=== PATIENT | female | born 1980 ===

== ENCOUNTER 2020-06-05 09:01 | Outpatient (REF) | payer OTHER, SELFPAY ==
[2020-06-05 12:01] LABS: Hematocrit 37.5 % (37-47); Hemoglobin 11.9 g/dl (12.0-16.0); Mean Corpuscular HGB Conc 31.7 g/dl (31.0-35.0); Mean Corpuscular Hemoglobin 29.2 pg (27.0-33.0); Mean Corpuscular Volume 92.1 fL (80-98); Mean Platelet Volume 10.9 fL (9.4-12.3); Platelet Count 280 X10*3/uL (160-400); Red Blood Count 4.07 X10*6/uL (4.20-5.50); Red Cell Distribution Width 13.5 % (11.0-16.0); White Blood Count 6.9 X10*3/uL (4.8-10.8)
[2020-06-05 12:50] LABS: HCG Quantitative < 2 mIU/mL; Thyroid Stimulating Hormone 1.86 uIU/mL (0.32-4.0)
[2020-06-05 15:59] LABS: CT PCR NOT DETECTED (Not Detect.); NG PCR NOT DETECTED (Not Detect.)
[2020-06-06 09:29] LABS: BV Int Neg Control Negative (Negative); BV Int Pos Control Positive (Positive)
[2020-06-07 18:36] LABS: HPV mRNA E6/E7 rflx Not Detected (Not Detected)
== END 2020-06-05 09:02 | disposition home or self-care (01) ==
LOC: HO.LAB 09:01
PROVIDERS: PCP Nurse Practitioner Family; Visit Provider Obstetrics & Gynecology
DX: Z01.419 Encounter for gynecological examination (general) (routine) without abnormal findings (principal); N92.0 Excessive and frequent menstruation with regular cycle; B96.89 Other specified bacterial agents as the cause of diseases classified elsewhere; N76.0 Acute vaginitis
CPT/HCPCS: 36415; 84443; 84702; 85027; 87480; 87491; 87510; 87591; 87624; 87625; 87660; 88142

== ENCOUNTER 2020-06-13 14:08 | Outpatient (REF) | payer OTHER, SELFPAY ==
--- NOTE | 2020-06-13 14:15 | US_ITS ---
EXAMINATION: US PELVIS ULTRASOUND CLINICAL INFORMATION: Excessive and frequent menstruation with regular cycle. LMP 05/10/2020. Age 40. N92.0 COMPARISON: Pelvic ultrasound 07/14/2017 TECHNIQUE: Ultrasound of the pelvis is performed using both transabdominal and transvaginal transducers along with Doppler. Transvaginal imaging is performed due to inadequate visualization transabdominally. FINDINGS: Uterus: The uterus is anteverted and measures 9.9 x 5.5 x 6.2 cm. The double wall endometrial thickness is normal at 9 mm. There are numerous scattered specular echoes within the cervical endometrium with some scattered subtle ringdown artifact suggesting microcalcifications. Finding is new from prior ultrasound 2017. There is no focal strong posterior shadowing to suggest macrocalcification nor dirty shadowing of gas. There is no associated color flow to suggest hyperechoic polyps. The uterus is smooth in contour and has normal myometrial echogenicity. No visible fibroid. Adnexa: Both ovaries are visualized. There is normal color flow to the adnexa. There is no ovarian torsion. There is no pelvic ascites or fluid collection. Right ovary measures 4.0 x 2.1 x 2.9 cm. There is a dominant follicle within the right ovary measuring 1.9 x 1.5 cm. Left ovary measures 3.8 x 1.8 x 2.0 cm. No left adnexal mass. US/US pelvic complete IMPRESSION: 1. Uterus: Normal double wall endometrial thickness, 9 mm. Numerous echogenic foci cervical endometrium without associated color flow likely benign microcalcifications. 2. Adnexa: No adnexal mass or pelvic ascites.
== END 2020-06-13 14:09 | disposition home or self-care (01) ==
LOC: HO.US 14:08
PROVIDERS: PCP Nurse Practitioner Family; Visit Provider Obstetrics & Gynecology
DX: N92.0 Excessive and frequent menstruation with regular cycle (principal)
CPT/HCPCS: 76830; 76856

== ENCOUNTER 2020-07-19 10:16 | Outpatient (REF) | payer OTHER, SELFPAY | END 2020-07-19 10:17 | disposition home or self-care (01) | LOC: HO.LAB 10:16 | PROVIDERS: PCP Nurse Practitioner Family; Visit Provider Obstetrics & Gynecology | DX: N92.0 Excessive and frequent menstruation with regular cycle (principal) | CPT/HCPCS: 58100; 88305 ==

== ENCOUNTER → 2020-08-07 14:23 | Outpatient (BNVA) | payer OTHER, SELFPAY | PROVIDERS: PCP Nurse Practitioner Family; Visit Provider Obstetrics & Gynecology | DX: Z76.89 Persons encountering health services in other specified circumstances (principal) ==

== ENCOUNTER 2020-09-26 08:50 | Outpatient (REF) | payer OTHER, SELFPAY ==
--- NOTE | ~2020-09-26 | MM_ITS ---
EXAMINATION: MM SCREENING DIGITAL BREAST TOMOSYNTHESIS, BILATERAL CLINICAL INFORMATION: Screening. Asymptomatic. The lifetime risk of breast cancer based on the Tyrer-Cuzick Model is 9%. COMPARISON: Mammography: 06/18/2019, 04/24/2018 (baseline), ultrasound left breast 04/24/2018 ultrasound bilateral breasts 06/18/2019. TECHNIQUE: Digital breast tomosynthesis is performed in both the craniocaudal and mediolateral oblique views along with computer-aided detection (CAD). Synthesized 2D images are generated from the tomosynthesis. Additional bilateral exaggerated CC views are provided. FINDINGS: The breasts are heterogeneously dense, which may obscure small masses (ACR BI-RADS breast composition Category c). Breast tissue composition borders on average fibroglandular. There is no significant mass or architectural abnormality or abnormal calcifications. There are grouped coarse and dermal calcifications overlying the mid 5:00 right breast. The axilla and skin contours are unremarkable. MM/MM tomosynthesis screening BI IMPRESSION: No mammographic evidence of malignancy. ASSESSMENT: BI-RADS 2: Benign RECOMMENDATION: Routine annual mammography screening. This patient's information was entered into a reminder system with a target due date for their next mammogram.
== END 2020-09-26 08:51 | disposition home or self-care (01) ==
LOC: HO.MAMMO 08:50
PROVIDERS: Visit Provider Obstetrics & Gynecology
DX: Z12.31 Encounter for screening mammogram for malignant neoplasm of breast (principal)
CPT/HCPCS: 77063; 77067

== ENCOUNTER 2021-07-23 09:03 | Outpatient (REF) | payer OTHER, SELFPAY ==
[2021-07-23 14:17] LABS: CT PCR NOT DETECTED (Not Detect.); NG PCR NOT DETECTED (Not Detect.)
[2021-07-24 09:30] LABS: BV Int Neg Control Negative (Negative); BV Int Pos Control Positive (Positive)
[2021-07-26 13:56] LABS: HPV mRNA E6/E7 rflx Not Detected (Not Detected)
== END 2021-07-23 09:04 | disposition home or self-care (01) ==
LOC: HO.LAB 09:03
PROVIDERS: PCP Nurse Practitioner Family; Visit Provider Obstetrics & Gynecology
DX: Z01.411 Encounter for gynecological examination (general) (routine) with abnormal findings (principal); Z11.51 Encounter for screening for human papillomavirus (HPV); B37.3 Candidiasis of vulva and vagina; B96.89 Other specified bacterial agents as the cause of diseases classified elsewhere; N76.0 Acute vaginitis
CPT/HCPCS: 87480; 87491; 87510; 87591; 87624; 87660; 88142

== ENCOUNTER 2021-12-28 09:17 | Outpatient (REF) | payer OTHER, SELFPAY ==
--- NOTE | ~2021-12-28 | MM_ITS ---
EXAMINATION: MM SCREENING DIGITAL BREAST TOMOSYNTHESIS, BILATERAL CLINICAL INFORMATION: Screening. Asymptomatic. The lifetime risk of breast cancer based on the Tyrer-Cuzick Model is 8.1%. COMPARISON: Mammography: September 26, 2020 and studies dating back to April 16, 2018 TECHNIQUE: Digital breast tomosynthesis is performed in both the craniocaudal and mediolateral oblique views along with computer-aided detection (CAD). Synthesized 2D images are generated from the tomosynthesis. Additional left breast exaggerated craniocaudal view performed. FINDINGS: The breasts are heterogeneously dense, which may obscure small masses (ACR BI-RADS breast composition Category c). There are no significant masses, abnormal calcifications, or other abnormalities. MM/MM tomosynthesis screening BI IMPRESSION: There are no significant changes from prior study. ASSESSMENT: BI-RADS 1: Negative RECOMMENDATION: Routine annual mammography screening. This patient's information was entered into a reminder system with a target due date for their next mammogram.
== END 2021-12-28 09:18 | disposition home or self-care (01) ==
LOC: HO.MAMMO 09:17
PROVIDERS: Visit Provider Obstetrics & Gynecology
DX: Z12.31 Encounter for screening mammogram for malignant neoplasm of breast (principal)
CPT/HCPCS: 77063; 77067

== ENCOUNTER 2023-01-03 09:25 | Outpatient (REF) | payer MEDICAID, SELFPAY ==
--- NOTE | ~2023-01-03 | MM_ITS ---
EXAMINATION: MM SCREENING DIGITAL BREAST TOMOSYNTHESIS, BILATERAL CLINICAL INFORMATION: Screening. Asymptomatic. The lifetime risk of breast cancer based on the Tyrer-Cuzick Model is 8%. COMPARISON: Mammography: 12/28/2021, 10/14/2020, 06/18/2019 TECHNIQUE: Digital breast tomosynthesis is performed in both the craniocaudal and mediolateral oblique views along with computer-aided detection (CAD). Synthesized 2D images are generated from the tomosynthesis. FINDINGS: The breasts are heterogeneously dense, which may obscure small masses (ACR BI-RADS breast composition Category c). There are no significant masses, abnormal calcifications, or other abnormalities. Parenchymal pattern is similar to prior studies. There is no developing density or architectural abnormality. There are incidental benign grouped dermal calcifications again seen 5:00 right breast. The axilla and skin contours are unremarkable. No significant changes. MM/MM tomosynthesis screening BI IMPRESSION: No mammographic evidence of malignancy. ASSESSMENT: BI-RADS 2: Benign RECOMMENDATION: Routine annual mammography screening. This patient's information was entered into a reminder system with a target due date for their next mammogram.
== END 2023-01-03 09:26 | disposition home or self-care (01) ==
LOC: HO.MAMMO 09:25
PROVIDERS: PCP Physician Assistant; Visit Provider Physician Assistant
DX: Z12.31 Encounter for screening mammogram for malignant neoplasm of breast (principal)
CPT/HCPCS: 77063; 77067

== ENCOUNTER 2023-01-22 08:47 | Outpatient (REF) | payer MEDICAID, SELFPAY ==
[2023-01-28 10:23] LABS: HPV mRNA E6/E7 rflx Not Detected (Not Detected)
== END 2023-01-22 08:48 | disposition home or self-care (01) ==
LOC: HO.LNP 08:47
PROVIDERS: PCP Physician Assistant; Visit Provider Obstetrics & Gynecology
DX: Z01.419 Encounter for gynecological examination (general) (routine) without abnormal findings (principal); N87.0 Mild cervical dysplasia; N93.9 Abnormal uterine and vaginal bleeding, unspecified
CPT/HCPCS: 87624; 88142

== ENCOUNTER 2023-01-22 09:20 | Outpatient (REF) | payer MEDICAID, SELFPAY ==
[2023-01-22 09:49] LABS: Hemoglobin 13.1 g/dl (12.0-16.0); Mean Corpuscular Hemoglobin 28.2 pg (27.0-33.0); Mean Corpuscular Volume 88.4 fL (80.0-98.0); Mean Platelet Volume 10.7 fL (9.4-12.3); Platelet Count 290 X10*3/uL (160-400); Red Blood Count 4.64 X10*6/uL (4.20-5.50); Red Cell Distribution Width 14.8 % (11.0-16.0); White Blood Count 5.8 X10*3/uL (4.8-10.8)
[2023-01-22 10:30] LABS: HCG Quantitative < 2 mIU/mL
[2023-01-22 10:41] LABS: TSH reflex Free T4 1.65 uIU/mL (0.32-4.0)
[2023-01-24 06:13] LABS: Prolactin 10.8 ng/mL
== END 2023-01-22 09:21 | disposition home or self-care (01) ==
LOC: HO.LAB 09:20
PROVIDERS: PCP Physician Assistant; Visit Provider Obstetrics & Gynecology
DX: N93.9 Abnormal uterine and vaginal bleeding, unspecified (principal)
CPT/HCPCS: 36415; 84146; 84443; 84702; 85027

== ENCOUNTER 2023-01-31 11:06 | Outpatient (REF) | payer MEDICAID, SELFPAY ==
--- NOTE | ~2023-01-31 | US_ITS ---
EXAMINATION: US PELVIS CLINICAL INFORMATION: Abnormal uterine and vaginal bleeding. COMPARISON: 06/13/2020 TECHNIQUE: Ultrasound of the pelvis is performed using both transabdominal and transvaginal transducers along with Doppler. Transvaginal imaging is performed due to inadequate visualization transabdominally. FINDINGS: UTERUS: The uterus is anteverted and measures 10.6 x 5.2 x 6.3 cm. No significant cervical abnormality identified. Nabothian cysts present. The double wall endometrial thickness is 10 mm. There is a small amount of free fluid present within the endometrial canal. The uterus is smooth in contour and has normal myometrial echogenicity. No visible fibroid. There is a 5 mm cyst within the left uterine body. ADNEXA: Both ovaries are visualized. There is normal color flow to the adnexa. There is no ovarian torsion. There is a small amount of fluid within the cul-de-sac. Right ovary measures: 2.7 x 1.8 x 2.1 cm. Volume of 5.3 mL. No right ovarian abnormality appreciated. Left ovary measures: 3.6 x 2.2 x 1.6 cm. Volume of 6.6 mL. There is a hypoechoic circumscribed 1.4 x 1.2 x 1.4 cm left ovarian mass with some increased through sound transmission and ring vascularity consistent with corpus luteum. US/US pelvic and transvaginal IMPRESSION: 1. Small amount of fluid seen within the endometrial canal. 2. No significant pelvic abnormality appreciated.
== END 2023-01-31 11:07 | disposition home or self-care (01) ==
LOC: HO.US 11:06
PROVIDERS: PCP Physician Assistant; Visit Provider Obstetrics & Gynecology
DX: N93.9 Abnormal uterine and vaginal bleeding, unspecified (principal)
CPT/HCPCS: 76830; 76856

== ENCOUNTER 2023-06-30 09:06 | Outpatient (AMB) | payer MEDICAID, SELFPAY ==
[2023-06-30 09:22] VITALS: BP 112/72; BMI 22.3
--- NOTE | 2023-06-30 09:22 | MHC.OFFVIS ---
Intake Vital Signs 06/30/23 09:22 Height 5 ft 8 in Weight 147 lb BMI 22.3 BP 112/72 Intake Visit Reasons: EMB/US results/30 min/DO NOT RS National Investigative Producer Required: No Information Interpreted: non-clinical & clinical Hydroelectric Production Manager: Hydroelectric Production Manager Present (Rachelle) Allergies acetaminophen [From PERCOCET] Allergy (Unknown, Verified 06/30/23 09:23) DIFFICULTY BREATHING morphine [Morphine] Allergy (Unknown, Verified 06/30/23 09:23) RASH, itching oxycodone [From PERCOCET] Allergy (Unknown, Verified 06/30/23 09:23) DIFFICULTY BREATHING Is last menstrual period known: Yes Last menstrual period: 06/11/23 Post menopausal: No Patient : No HPI HPI Comments History of Present Illness Details Presenting for EMB. Complaining of left breast tender lump [facility] Medical History Dysplasia of cervix, low grade (ZI 1) ZI II (cervical intraepithelial neoplasia II) Genital HSV Cholecystitis Anxiety Thyroid nodule Surgical History Hx of thyroidectomy History of bilateral tubal ligation History of cholecystectomy Family History Paternal Aunt Colon cancer Social History Alcohol intake: never Sexual orientation: Straight/Heterosexual Gender identity: Female Female Reproductive History Menstrual Age of Menarche: 10 Date of last menstrual period: 06/11/23 control method: permanent sterilization Date of last pap smear: 01/23/23 (negative) Physical Exam Vital Signs: Last Vital Signs BP 112/72 06/30/23 09:22 BMI result Body Mass Index 22.3 Chest Chest palpation & inspection: normal inspection of the chest Breast/axilla inspection: normal inspection of the breasts Breast/axilla palpation: normal palpation of the breasts (Right breast wnl, left breast tender lump at 06:00 o'clock 1 cm from nipple) Office Procedures Endometrial Biopsy Details: The patient was counseled regarding the indication and benefits of endometrial sampling to rule out endometrial pathology including not limited to endometrial hyperplasia or endometrial cancer and others; The alternatives (Either do nothing vs. hysteroscopy D&C) & the risks were discussed with the patient including but not limited: pain, uterine perforation, bleeding, infection, possible injury to bladder, bowel, ureter, possible need for blood transfusion with all its possible risks. The patient verbalized understanding all questions answered and signed consent. Urine test done in the office was negative The patient was placed into the dorsal lithotomy position; a speculum was inserted in the vagina. Using aseptic technique for the procedure, the cervix was cleansed with Betadine. The anterior lip of the cervix was grasped with a single tooth tenaculum. The uterus was sounded to 7 cm with a 4 mm Pipelle was used. Tissues samples were obtained and placed in formalin, in a patient labeled container and sent to the pathology department. At the end of the procedure, there was minimal bleeding noted The patient tolerated the procedure well and was discharged in good condition with the following instructions: Nothing in the vagina until the bleeding stops. No sex until the bleeding stops, to call if any of the following occurs: fever (>100.4), flu-like symptoms, abdominal pain, heavy bleeding, four smelling vaginal discharge. The patient was instructed to schedule a Follow up appointment in 2 weeks to discuss pathology results of the biopsy and treatment options. This note was generated with a voice recognition program. Some errors may have been overlooked during the review of this note. Sometimes these errors may affect the content or meaning of a given sentence. [id number] Biopsy Results AMB Test Urine AMB Test Urine Negative Last Edit by XU Vogel on 06/30/23 09:25 Assessment & Plan Assessment & Plan (1) Abnormal uterine bleeding: Code(s): N93.9 - Abnormal uterine and vaginal bleeding, unspecified Plan: EMB done, see procedure note (2) Breast lump: Comment: left breast tender lump at 06:00 o'clock 1 cm from nipple Code(s): N63.0 - Unspecified lump in unspecified breast Plan: Discussed with the patient the finding on Breast exam (breast lump) .The differential diagnosis includes but not limited to lump/cyst/pre cancer/cancer or dense breast tissue. The work up includes breast US and diagnostic mammogram and referred the patient for surgical breast consult. Orders: Orders MM tomosynthesis diagnostic BI Today N63.0 - Unspecified lump in unspecified breast AMB Endometrial Biopsy Today N93.9 - Abnormal uterine and vaginal bleeding, unspecified AMB HCG Urine Test Today Z32.02 - Encounter for test, result negative US breast LT complete Today N63.0 - Unspecified lump in unspecified breast Referrals General Surgery Referral N63.0 - Unspecified lump in unspecified breast Coding Level of Care Code Est Pt Level 3 (92721) Procedure Only Diagnoses Abnormal uterine bleeding N93.9 Breast lump N63.0 CPT Codes Endometrial Biopsy - CPT: 71930-[id number] Biopsy ([id number])
== END 2023-06-30 09:40 | disposition home or self-care (01) ==
PROVIDERS: PCP Physician Assistant; Visit Provider Obstetrics & Gynecology
DX: N63.25 Unspecified lump in the left breast, overlapping quadrants (principal); N93.9 Abnormal uterine and vaginal bleeding, unspecified; Z32.02 Encounter for pregnancy test, result negative
CPT/HCPCS: 58100; 99213

== ENCOUNTER 2023-06-30 09:06 | Outpatient (REF) | payer MEDICAID, SELFPAY | END 2023-06-30 09:07 | disposition home or self-care (01) | LOC: HO.LNP 09:06 | PROVIDERS: PCP Physician Assistant; Visit Provider Obstetrics & Gynecology | DX: N93.9 Abnormal uterine and vaginal bleeding, unspecified (principal); N63.0 Unspecified lump in unspecified breast | CPT/HCPCS: 58100; 81025; 88305; 99212 ==

== ENCOUNTER 2023-07-07 08:25 | Outpatient (REF) | payer MEDICAID, SELFPAY ==
--- NOTE | ~2023-07-07 | US_ITS ---
EXAMINATION: MM DIAGNOSTIC DIGITAL BREAST TOMOSYNTHESIS, LEFT US BREAST LIMITED, LEFT MAMMOGRAPHY: CLINICAL INFORMATION: 43-year-old female, feels lump at 6:00 periareolar location. COMPARISON: Mammography: 01/03/2023, 12/28/2021, 09/26/2020 TECHNIQUE: Digital breast left tomosynthesis is performed in both the craniocaudal and mediolateral oblique views along with computer-aided detection (CAD). Synthesized 2D images are generated from the tomosynthesis. A full-field left mediolateral view was also obtained. FINDINGS: The breasts are heterogeneously dense, which may obscure small masses (ACR BI-RADS breast composition Category c). Area of palpable concern is been marked with a BB by the technologist at the 6:00 location periareolar. No mammographic mass, suspicious calcifications, or developing architectural distortion is seen to correlate with the BB marker. No suspicious findings in the left breast. ULTRASOUND: CLINICAL INFORMATION: Palpable abnormality 6:00 periareolar. COMPARISON: None TECHNIQUE: Targeted sonographic evaluation was performed using a high frequency linear transducer. Attention was given to the 6:00 axis periareolar in the region of palpable concern. Selected archived documentation. FINDINGS: LEFT BREAST: In the 6:00 axis of the left breast, 1 cm from the nipple, there is a small cyst measuring 4 x 2 x 2 cm, accounting for the palpable focus of concern. This is a benign finding. In addition there is a second simple cyst at the 7:00 location measuring approximately 4 mm. No masses or suspicious abnormalities. US/US breast LT limited mamm only IMPRESSION: Palpable finding in the left breast 6:00 axis is consistent with a small simple cyst. This is benign. No further follow-up recommended. Recommend the patient resume routine annual screening in December 2023. OVERALL ASSESSMENT: Mammography: BI-RADS 2 - Benign Findings Ultrasound: BI-RADS 2 - Benign Findings RECOMMENDATION: 1 year F/U Results were provided to the patient at time of visit by the technologist. This patient's information was entered into a reminder system with a target due date for their next mammogram.
== END 2023-07-07 08:26 | disposition home or self-care (01) ==
LOC: HO.MAMMO 08:25
PROVIDERS: PCP Physician Assistant; Visit Provider Obstetrics & Gynecology
DX: N63.25 Unspecified lump in the left breast, overlapping quadrants (principal); N93.9 Abnormal uterine and vaginal bleeding, unspecified; N71.9 Inflammatory disease of uterus, unspecified
CPT/HCPCS: 36415; 76642; 77061; 77065; 81025; 85027; 99212

== ENCOUNTER → 2023-07-07 09:00 | Outpatient (BNV) | payer MEDICAID, SELFPAY | PROVIDERS: PCP Physician Assistant; Visit Provider Radiology Diagnostic Radiology | DX: N63.20 Unspecified lump in the left breast, unspecified quadrant (principal) | CPT/HCPCS: 76642; 77061; 77065 ==

== ENCOUNTER 2023-07-07 14:55 | Outpatient (AMB) | payer MEDICAID, SELFPAY ==
--- NOTE | 2023-07-07 15:29 | A.OFFVIS_ITS ---
Intake Vital Signs 07/07/23 15:36 Height 5 ft 8 in Weight 145 lb 8.081 oz BMI 22.1 BP 126/80 Temp 97.1 F Intake Visit Reasons: Bleeding after emb Allergies acetaminophen [From PERCOCET] Allergy (Unknown, Verified 06/30/23 09:23) DIFFICULTY BREATHING morphine [Morphine] Allergy (Unknown, Verified 06/30/23 09:23) RASH, itching oxycodone [From PERCOCET] Allergy (Unknown, Verified 06/30/23 09:23) DIFFICULTY BREATHING HPI HPI Comments History of Present Illness Details Presenting 1 week post EMB complaining of vaginal bleeding started few days ago that is heavy associated with pelvic cramping no fever or chills, no nausea or vomiting. EMB was negative for endometrial hyperplasia or malignancy, ultrasound was unremarkable . [facility] [place] Medical History Dysplasia of cervix, low grade (ZI 1) ZI II (cervical intraepithelial neoplasia II) Genital HSV Cholecystitis Anxiety Thyroid nodule Surgical History Hx of thyroidectomy History of bilateral tubal ligation History of cholecystectomy Family History Paternal Aunt Colon cancer Social History Alcohol intake: never Sexual orientation: Straight/Heterosexual Gender identity: Female Female Reproductive History Menstrual Age of Menarche: 10 Physical Exam Vital Signs: Last Vital Signs BP 126/80 07/07/23 15:36 GI Palpation (GI): Soft to palpation and nontender General: Yes Bimanual renal exam normal bilaterally External Female Exam: normal external appearance Speculum Exam - Vagina: other (Blood per vagina, no evidence of active bleeding) Speculum Exam - Cervix: Cervical tenderness present Bimanual exam- vagina & uterus: Cervical tenderness present, cervical motion tenderness and Uterine tenderness Bimanual Exam- Adnexa, other: tender Results AMB Test Urine AMB Test Urine Negative Last Edit by Rachelle Lin CMA on 15:42 Results Reviewed Results Reviewed: Laboratory Last Values [facility] Clinic Negative 07/07/23 15:41 Assessment & Plan Assessment & Plan (1) Abnormal uterine bleeding: Code(s): N93.9 - Abnormal uterine and vaginal bleeding, unspecified Plan: UPT done in the office was negative. Will order CBC , start Provera 10 mg p.o. q.d. for 30 days. Instructions given the patient to call or go to emergency room in case of persistence of heavy vaginal bleeding otherwise follow-up in the office in 2 weeks (2) Endometritis: Code(s): N71.9 - Inflammatory disease of uterus, unspecified Plan: Will treat with Levaquin 500 mg p.o. q.d. with Flagyl 500 mg p.o. b.i.d. for 14 days. Instructions given to patient to call in case of fever above 100.4, nausea or vomiting, abdominal/pelvic pain otherwise schedule a 2 week follow-up Orders: Orders AMB HCG Urine Test Today Z32.02 - Encounter for test, result negative Medications: New levofloxacin 500 mg PO DAILY 14 days 28 tabs 0RF metronidazole 500 mg PO BID 14 days 28 tabs 0RF medroxyprogesterone (Provera) start Provera 1 tablet daily from day 15-24 cyclically every months, day 1 being 1st day of menses 10 mg PO DAILY 30 days 30 tabs 0RF Coding Level of Care Code Est Pt Level 3 (77182) Diagnoses Abnormal uterine bleeding N93.9 Endometritis N71.9
[2023-07-07 15:36] VITALS: BP 126/80; TEMP 36.2; BMI 22.1
== END 2023-07-07 16:11 | disposition home or self-care (01) ==
LOC: HO.HWS 14:55
PROVIDERS: PCP Physician Assistant; Visit Provider Obstetrics & Gynecology
DX: N93.9 Abnormal uterine and vaginal bleeding, unspecified (principal); N71.9 Inflammatory disease of uterus, unspecified; Z32.02 Encounter for pregnancy test, result negative
CPT/HCPCS: 99213

== ENCOUNTER 2023-07-07 16:05 | Outpatient (REF) | payer MEDICAID, SELFPAY ==
[2023-07-07 17:39] LABS: Hematocrit 38.7 % (37.0-47.0); Hemoglobin 12.3 g/dl (12.0-16.0); Mean Corpuscular HGB Conc 31.8 g/dl (31.0-35.0); Mean Corpuscular Hemoglobin 28.6 pg (27.0-33.0); Mean Platelet Volume 11.2 fL (9.4-12.3); Platelet Count 285 X10*3/uL (160-400); Red Cell Distribution Width 14.2 % (11.0-16.0)
== END 2023-07-07 16:06 | disposition home or self-care (01) ==
LOC: HO.LAB 16:05
PROVIDERS: Visit Provider Obstetrics & Gynecology
DX: N93.9 Abnormal uterine and vaginal bleeding, unspecified (principal)
CPT/HCPCS: 36415; 85027

== ENCOUNTER 2023-07-17 12:43 | Outpatient (AMB) | payer MEDICAID, SELFPAY ==
[2023-07-17 12:55] VITALS: BP 116/70; BMI 22.0
--- NOTE | 2023-07-17 12:55 | MHC.OFFVIS ---
Intake Vital Signs 07/17/23 12:55 Height 5 ft 8 in Weight 145 lb BMI 22.0 BP 116/70 Intake Visit Reasons: Follow labs Perennial House Manager Required: No Accompanied by: Daughter Allergies acetaminophen [From PERCOCET] Allergy (Unknown, Verified 07/17/23 12:55) DIFFICULTY BREATHING morphine [Morphine] Allergy (Unknown, Verified 07/17/23 12:55) RASH, itching oxycodone [From PERCOCET] Allergy (Unknown, Verified 07/17/23 12:55) DIFFICULTY BREATHING Is last menstrual period known: Yes Last menstrual period: 07/07/23 Post menopausal: No HPI HPI Comments History of Present Illness Details Presenting for follow-up for endometritis. The patient did not take antibiotic was feeding much better normal pelvic pain or any other concerns. [facility] Medical History Fibromyalgia Dysplasia of cervix, low grade (ZI 1) ZI II (cervical intraepithelial neoplasia II) Genital HSV Cholecystitis Anxiety Thyroid nodule Surgical History Hx of thyroidectomy History of bilateral tubal ligation History of cholecystectomy Family History Paternal Aunt Colon cancer Social History Alcohol intake: never Sexual orientation: Straight/Heterosexual Gender identity: Female Female Reproductive History Menstrual Age of Menarche: 10 Duration of menses: 6-7 days Date of last menstrual period: 07/07/23 control method: permanent sterilization Review of Systems Const All systems reviewed & are unremarkable except as noted in HPI and below Reports as per HPI and Reports no additional complaints GI Reports no additional complaints Reports no additional complaints Physical Exam Vital Signs: Last Vital Signs BP 116/70 07/17/23 12:55 BMI result Body Mass Index 22.0 Assessment & Plan Assessment & Plan (1) Endometritis: Code(s): N71.9 - Inflammatory disease of uterus, unspecified Plan: Instructions given the patient to call in case of recurrence of her pelvic pain, fever above 100.4 , nausea or vomiting (2) Breast lump: Comment: left breast tender lump at 06:00 o'clock 1 cm from nipple Code(s): N63.0 - Unspecified lump in unspecified breast Plan: Discussed with patient the results of her breast ultrasound and mammogram, BI-RADS 2, showing to with small cyst 6 in 7 o'clock in the left breast 1 cm from the nipple measuring 0.4 cm each, recommended to schedule an appointment general surgery , referral in place, all questions answered, the patient verbalized understanding and agreed with the plan (3) Abnormal uterine bleeding: Code(s): N93.9 - Abnormal uterine and vaginal bleeding, unspecified Plan: Recommended cyclic Provera 10 mg p.o. q.d. day 15-24 if the patient is menstrual cycles is not regular. Coding Level of Care Code Est Pt Level 3 (70542) Diagnoses Endometritis N71.9 Breast lump N63.0 Abnormal uterine bleeding N93.9
== END 2023-07-17 14:29 | disposition home or self-care (01) ==
LOC: HO.HWS 12:43
PROVIDERS: PCP Physician Assistant; Visit Provider Obstetrics & Gynecology
DX: N71.9 Inflammatory disease of uterus, unspecified (principal); N63.0 Unspecified lump in unspecified breast; N93.9 Abnormal uterine and vaginal bleeding, unspecified
CPT/HCPCS: 99213

== ENCOUNTER → 2023-07-17 12:43 | Outpatient (BNVA) | payer MEDICAID, SELFPAY | PROVIDERS: PCP Physician Assistant; Visit Provider Obstetrics & Gynecology | DX: N71.9 Inflammatory disease of uterus, unspecified (principal); N63.0 Unspecified lump in unspecified breast; N93.9 Abnormal uterine and vaginal bleeding, unspecified | CPT/HCPCS: 99212 ==

== ENCOUNTER 2024-03-01 08:15 | Outpatient (REF) | payer MEDICAID, SELFPAY ==
--- NOTE | ~2024-03-01 | MM_ITS ---
EXAMINATION: MM SCREENING DIGITAL BREAST TOMOSYNTHESIS, BILATERAL CLINICAL INFORMATION: Screening. Asymptomatic. COMPARISON: Mammography: This study is compared with prior exams dating back to 2019. TECHNIQUE: Digital breast tomosynthesis is performed in both the craniocaudal and mediolateral oblique views along with computer-aided detection (CAD). Synthesized 2D images are generated from the tomosynthesis. FINDINGS: The breasts are heterogeneously dense, which may obscure small masses (ACR BI-RADS breast composition Category c). There are no significant masses, abnormal calcifications, or other abnormalities. MM/MM tomosynthesis screening BI IMPRESSION: No mammographic evidence of malignancy. ASSESSMENT: BI-RADS BI-RADS 1 - Negative RECOMMENDATION: Routine annual mammography screening. 1 year F/U This examination should not preclude the clinical evaluation of a suspicious palpable abnormality. This patient's information was entered into a reminder system with a target due date for their next mammogram. Electronically signed by: Alanis Escamilla MD 03/24/2024 04:33 PM EDT
== END 2024-03-01 08:16 | disposition home or self-care (01) ==
LOC: HO.MAMMO 08:15
PROVIDERS: PCP Physician Assistant; Visit Provider Physician Assistant
DX: Z12.31 Encounter for screening mammogram for malignant neoplasm of breast (principal)
CPT/HCPCS: 77063; 77067

== ENCOUNTER → 2024-03-01 08:15 | Outpatient (BNV) | payer MEDICAID, SELFPAY | PROVIDERS: PCP Physician Assistant; Visit Provider Radiology Diagnostic Radiology | DX: Z12.31 Encounter for screening mammogram for malignant neoplasm of breast (principal) | CPT/HCPCS: 77063; 77067 ==

== ENCOUNTER 2024-04-12 13:00 | Outpatient (REF) | payer OTHER, SELFPAY ==
--- NOTE | ~2024-04-12 | US_ITS ---
EXAMINATION: US DIAGNOSTIC ULTRASOUND BREAST, LEFT CLINICAL INFORMATION: 6:00 palpable abnormality left breast, which is tender with breast pain. 44-year-old female. COMPARISON: Left breast ultrasound 07/07/2023. TECHNIQUE: Ultrasound of the left breast is performed with real-time craft scale imaging and color Doppler. Attention was given to the 4-8 o'clock access to include the area of palpable concern and pain. FINDINGS: There is no focal suspicious finding. There is no solid mass, architectural abnormality, duct ectasia, or edema in the soft tissue planes. There is an essentially stable minimally complicated cyst measuring 4 x 2 x 4 mm. This is benign. The patient appears to be feeling a region of dense tissue in the 6:00 axis, 2 cm from the nipple. Results are provided to the patient at time of visit by the technologist. US/US breast LT limited mamm only IMPRESSION: Benign findings. No findings suspicious for malignancy. ASSESSMENT: BI-RADS 2: Benign RECOMMENDATION: 1. Patient should be managed based on the clinical impression. 2. Otherwise, routine annual screening mammography. Electronically signed by: Liban Dang MD 04/12/2024 02:25 PM EDT
== END 2024-04-12 13:01 | disposition home or self-care (01) ==
LOC: HO.MAMMO 13:00
PROVIDERS: PCP Physician Assistant; Visit Provider Physician Assistant
DX: N64.4 Mastodynia (principal)
CPT/HCPCS: 76642

== ENCOUNTER → 2024-04-12 13:00 | Outpatient (BNV) | payer OTHER, SELFPAY | PROVIDERS: PCP Physician Assistant; Visit Provider Radiology Diagnostic Radiology | DX: N64.4 Mastodynia (principal) | CPT/HCPCS: 76642 ==

== ENCOUNTER 2024-06-14 13:47 | Outpatient (AMB) | payer OTHER, SELFPAY ==
--- NOTE | 2024-06-14 13:48 | A.OFFVIS_ITS ---
Vital Signs 06/14/24 13:54 Weight 146 lb BP 124/78 Intake Visit Reasons: EDUCATION DEPARTMENT CHAIR annual exam/do not reschedule Movie Star: Movie Star Present (Latisha) Accompanied by: Self / Same As Patient Allergies acetaminophen [From PERCOCET] Allergy (Unknown, Verified 06/14/24 13:55) DIFFICULTY BREATHING morphine [Morphine] Allergy (Unknown, Verified 06/14/24 13:55) RASH, itching oxycodone [From PERCOCET] Allergy (Unknown, Verified 06/14/24 13:55) DIFFICULTY BREATHING HPI Comments Details: Presenting for annual exam. No complaints. Last Pap/HPV was negative in 01/17 Last Mammogram was BI-RADS 1 in 03/20 [facility] Medical History Fibromyalgia Dysplasia of cervix, low grade (ZI 1) ZI II (cervical intraepithelial neoplasia II) Genital HSV Cholecystitis Anxiety Thyroid nodule Surgical History Hx of thyroidectomy History of bilateral tubal ligation History of cholecystectomy Family History Paternal Aunt Colon cancer Social History Alcohol intake: never Sexual orientation: Straight/Heterosexual Gender identity: Female Female Reproductive History Menstrual Age of Menarche: 10 Duration of menses: 6-7 days Date of last menstrual period: 06/14/24 Total pregnancies: 5 Full term: 5 Date of last pap smear: 01/22/23 (negative pap smear, negative hpv ) Date of Mammogram: 03/01/24 (bi-rad 1) Review of Systems Const All systems reviewed & are unremarkable except as noted in HPI and below Card Reports as per HPI Resp Reports as per HPI GI Reports as per HPI and Reports no additional complaints Reports as per HPI Physical Exam Const General: cooperative, healthy appearing and comfortable Chest Chest palpation & inspection: normal inspection of the chest and normal palpation of entire chest wall Breast/axilla inspection: normal inspection of the breasts and normal inspection of the axillae Breast/axilla palpation: normal palpation of the breasts, normal palpation of the axillae and no axillary lymphadenopathy Resp Effort & Inspection: normal respiratory effort Auscultation: clear to auscultation bilaterally Percussion: percussion normal Cardio Palpation: normal PMI Rate: regular rate Rhythm: regular rhythm Heart sounds: no murmurs and no rubs Peripheral pulses: Peripheral pulses 2+ throughout GI Inspection: Yes normal to inspection Palpation (GI): Soft to palpation, nontender, no guarding, not rigid and No hepatosplenomegaly present Percussion: Yes normal to percussion Auscultation: normal bowel sounds Rectal Exam - Female: deferred General: Yes bladder normal to palpation External Female Exam: No lesion Speculum Exam - Vagina: normal appearance of the vagina, normal palpation, normal vaginal discharge and not erythematous Speculum Exam - Cervix: normal appearance of the cervix and normal palpation Bimanual exam- vagina & uterus: normal bimanual exam, normal palpation, uterine size normal, bladder normal to palpation, consistency normal and normal palpation Bimanual Exam- Adnexa, other: normal adnexae, no masses and no tenderness Assessment & Plan Assessment & Plan (1) Well woman exam: Code(s): Z01.419 - Encounter for gynecological examination (general) (routine) without abnormal findings Category: Medical Plan: Cotesting not indicated this year. Instructions given the patient to schedule next screening Mammogram in 03/21. Counseled the patient about the recommended dietary allowance of 1000 mg of Calcium & 600 IU of vitamin D. The patient was instructed to perform monthly self-breast exams and to schedule an annual exam in a year; All questions answered and the patient verbalized understanding. Instructed the patient to schedule annual exam in a year Coding Level of Care Code Est Pt Prev Care 40-64y([id number]) Diagnoses Well woman exam Z01.419
[2024-06-14 13:54] VITALS: BP 124/78
== END 2024-06-14 14:14 | disposition home or self-care (01) ==
LOC: HO.HWS 13:47
PROVIDERS: PCP Physician Assistant; Visit Provider Obstetrics & Gynecology
DX: Z01.419 Encounter for gynecological examination (general) (routine) without abnormal findings (principal)
CPT/HCPCS: 99396

== ENCOUNTER → 2024-06-14 13:47 | Outpatient (BNVA) | payer OTHER, SELFPAY | PROVIDERS: PCP Physician Assistant; Visit Provider Obstetrics & Gynecology | DX: Z01.419 Encounter for gynecological examination (general) (routine) without abnormal findings (principal) | CPT/HCPCS: 99396 ==

== ENCOUNTER 2024-09-01 13:37 | Outpatient (REF) | payer OTHER, SELFPAY ==
--- NOTE | ~2024-09-01 | MM_ITS ---
EXAMINATION: MM DIAGNOSTIC DIGITAL BREAST TOMOSYNTHESIS, LEFT Limited left breast ultrasound. CLINICAL INFORMATION: Palpable left breast lump. COMPARISON: Mammography: Comparison is made with available prior examinations. TECHNIQUE: Digital breast tomosynthesis is performed in both the craniocaudal and mediolateral oblique views along with computer-aided detection (CAD). Synthesized 2D images are generated from the tomosynthesis. Limited left breast ultrasound. FINDINGS: The breasts are heterogeneously dense, which may obscure small masses (ACR BI-RADS breast composition Category c). BB marker in the upper outer breast at site of patient's palpable lump without underlying abnormality. No suspicious masses calcifications or other abnormal findings. Targeted color Doppler ultrasound scanning from 1-5 o'clock demonstrates a simple cyst with adjacent minimally complicated smaller cysts with thin intervening breast tissue at 1:00 2 cm from nipple measuring 6 x 3 x 6 mm this could represent the patient's palpable lump. MM/MM tomosynthesis diagnostic LT IMPRESSION: Simple minimally complicated cysts on ultrasound. Benign. ASSESSMENT: BI-RADS BI-RADS 2 - Benign Findings RECOMMENDATION: 1 year F/U Results were provided to the patient at time of visit by the technologist. This patient's information was entered into a reminder system with a target due date for their next mammogram. Electronically signed by: Zuleyma Lora DO 09/01/2024 02:44 PM [facility]
--- OUTSIDE RECORDS SUMMARY | 2024-09-01 15:01 | XMS_ITS | Clinical Summary ---
Author Organization [facility] Address [address] [place] [address] Care Team Providers Care Case Management Rn Name Role Phone Unavailable Primary Care Provider Unavailabl e Social History Tobacco Use Types Packs/Day Years Used Date Smoking Tobacco: Never Assessed Sex and Gender Information Value Date Recorded Sex Assigned at Not on file Gender Identity Not on file Sexual Orientation Not on file Plan of Treatment Health Maintenance Due Date Last Done Comments Breast Cancer Screening 1980 DTaP,Tdap,and Td Vaccines (1 - Tdap) 1999 Hepatitis B Vaccines (1 of 3 - 19+ 3-dose series) 1999 Cervical Cancer Screening: P ap Smear 2001 Depression Screening 06/30/2022 HIV Screening 06/30/2022 Hepatitis C Screening 06/30/2022 Social Influencers of Health Screening 06/30/2022 COVID-19 Vaccine (2023-2 5 season) 2024 Influenza Vaccine (#1) 2024 HIB Vaccines Aged Out No longer eligi ble based on patient's age to complete this topic HPV Vaccines Aged Out No longer eligi ble based on patient's age to complete this topic Hepatitis A Vaccines Aged Out No long er eligible based on patient's age to complete this topic IPV Vaccines Aged Out No longer eligi ble based on patient's age to complete this topic MMR Vaccines Aged Out No longer eligi ble based on patient's age to complete this topic Meningococcal ACWY Vaccine Aged Out N o longer eligible based on patient's age to complete this topic Pneumococcal Vaccine: Pediat rics (0 to 5 Years) and At-Risk Patients (6 to 64 Years) Aged Out No longer eligible b ased on patient's age to complete this topic RSV Immunization Patients Un santos 20 months Aged Out No longer eligible b ased on patient's age to complete this topic Varicella Vaccines Aged Out No longer eligible based on patient's age to complete this topic
--- OUTSIDE RECORDS SUMMARY | 2024-09-01 15:01 | XMS_ITS | Clinical Summary ---
Author Organization [facility] Address [address] [place] [address] Care Team Providers Care Power Transformer Repair Supervisor Name Role Phone Latanya Pulido PA-C Primary Care Provider Source Comments PLEASE NOTE, if this patient is a minor, it may be UNLAWFUL to discuss sensitive information that is contained in these records (such as FAMILY PLANNING, MENTAL HEALTH or SUBSTANCE ABUSE) with the minor patient's parent or other person without the patient's specific authorization.[facility] Allergies Active Allergy Reactions Criticality Noted Date Comments Morphine 06/01/2013 Oxycodone-Acetaminophen 03/21/2022 Medications diclofenac sodium (VOLTAREN) 1 % gelIndications: Anxiety and depression Apply topically 2 (two) times daily as needed for pain 100 g 3 Active cholecalciferol , vitamin D3, 25 mcg (1,000 unit) capsuleIndicati ons:Vitamin D deficiency TAKE 1 CAPSULE BY MOUTH EVERY DAY 90 Capsule 1 3 Active cyanocobalamin, vitamin B-12, 1,000 mcg SL tabletIndicatio ns:Vitamin B12 deficiency DISSOLVE 1 TABLET UNDER THE TONGUE EVERY DAY 90 Tablet 1 3 Active nicotine, polacrilex, (NICORETTE) 4 mg gumIndications: Tobacco use disorder Take 1 Each by mouth as needed for smoking cessation 110 Each 4 Active nicotine (NICODERM, STEP 1) 21 mg/24 hr patchIndication s:Tobacco use disorder Place 1 Patch onto the skin once daily (every 24 hours) 28 Patch 4 Active meclizine (ANTIVERT) 25 mg tabletIndicatio ns:Benign paroxysmal vertigo, unspecified laterality Take 1 Tablet by mouth once daily as needed for nausea or dizziness 30 Tablet 4 Active tretinoin (RETIN-A) 0.01 % gelIndications: Acne, unspecified acne type Apply topically nightly at bedtime 15 g 1 4 Active benzonatate (TESSALON) 200 mg capsuleIndicati ons:Viral upper respiratory tract infection Take 1 Capsule by mouth 3 (three) times daily as needed for cough 30 Capsule 4 Active albuterol HFA 90 mcg/actuation inhalerIndicati ons:Decreased breath sounds Inhale 2 Puffs into the lungs every 4 to 6 (four to six) hours as needed for wheezing 18 g 4 Active fluticasone (FLONASE) 50 mcg/actuation nasal sprayIndication s:Seasonal allergic rhinitis, unspecified trigger Place 1 Metcalfe in both nostrils once daily 16 g 1 4 Active predniSONE (DELTASONE) 20 mg tabletIndicatio ns:Decreased breath sounds Take 2 Tablets by mouth once daily 10 Tablet 4 Active nitrofurantoin, macrocrystal-mo nohydrate, (MACROBID) 100 mg capsuleIndicati ons:Urinary tract infection Take 1 Capsule by mouth 2 (two) times daily 14 Capsule 4 Active metroNIDAZOLE (FLAGYL) 500 mg tabletIndicatio ns:BV (bacterial vaginosis) Take 1 Tablet by mouth 2 (two) times daily Avoid alcohol consumption during treatment and 48 hours post treatment. 14 Tablet 5 Active fluconazole (DIFLUCAN) 150 mg tabletIndicatio ns:Yeast infection Take 1 tab PO today. Then take 1 tab PO in 72 hours if symptoms persist 2 Tablet 5 Active omeprazole (PRILOSEC) [address] capsuleIndicati ons:Gastroesoph ageal reflux disease without esophagitis Take 1 Capsule by mouth every morning before breakfast 90 Capsule 1 5 Active valACYclovir (VALTREX) 1 gram tabletIndicatio ns:HSV infection Take 2 tab PO q12h for a total 60 Tablet 1 5 Active valACYclovir (VALTREX) 1 gram tabletIndicatio ns:HSV infection Take 2 tab PO q12h for a total 6 Tablet 5 4 025 Discontin ued(Reord er (E-Cancel Not Sent)) fluconazole (DIFLUCAN) 150 mg tabletIndicatio ns:Yeast infection Take 1 tab PO today. Then take 1 tab PO in 72 hours if symptoms persist 2 Tablet 5 025 Discontin ued(Reord er (E-Cancel Not Sent)) Active Problems Problem Noted Date Diagnosed Date History of thyroid nodule 01/08/20232022 Vitamin D deficiency 07/30/2020 Vitamin B12 deficiency 07/30/2020 S/P left inguinal hernia repair 08/07/2017 Overview (09/08/2017): SP laparoscopic left inguinal hernia repair, Follow up PRN Hx of LEEP (loop electrosurg ical excision procedure) of cervix complicating 03/19/2017 Overview (03/19/2017): 2016 Genital herpes 03/19/2017 Overview (03/19/2017): On daily valacyclovi 1 g rx by midwifery care Smoker 03/19/2017 Resolved Problems Problem Noted Date Diagnosed Date Resolved Date On pre-exposure prophylaxis for HIV 01/08/202301/0801/08/2023 Frequent urination 05/26/2017 3 Overview (09/22/2017): Seen by Urology- Evaluated for Recurrent Cystitis without hematuria and dysuria- Treated with Bactrim and C&S sent, patient to follow up with FLOAT NURSE to R/O FLOAT NURSE cause of dysuria US negative with no evidence of renal calculi, scars, masses or hydronephrosis, treated with Diflucan Thyroid nodule 03/19/2017 01/08/2023 Overview (08/15/2017): [facility] Diagnostic Imaging Department 08/08/2017 Status post interim right thyroidectomy. Normal remaining thyroid gland. 2012 removal Left inguinal hernia 03/19/2017 018 Overview (05/14/2017): [facility] Impression left groin hernia likely femoral please see notes Encounters Date Type Department Care Team Description 08/03/2024 Interim Notes [address] [phone] Latanya Pulido PA-C Breast pain, left (Primary Dx) 07/29/2024 5:20 PM EST Office Visit [address] [phone] ChildBartJAMAL Vaginal irritation (Primary Dx); Yeast infection 07/29/2024 Travel 06/30/2024 Interim Notes [address] [phone] Latanya Pulido PA-C Breast pain, left (Primary Dx); Family history of breast cancer from Last 3 Months Immunizations Name Administration Dates Next Due Flu, Preservative Free 04/16/2023,04/02/2022, Influenza (FLUBLOK),recombinant,injectable,prese rvative Free 03/31/2024 Moderna COVID-19 Vaccine, re d cap blue label, 12+ Primary Series 06/14/2021 PNEUMOCOCCAL POLYSACCHARIDE PPV23 01/21/2012 PPD 12/08/2023,,07/22/2017,03/19 TDAP 03/19/2017 Social History Tobacco Use Types Packs/Day Years Used Date Smoking Tobacco: Former Smokeless Tobacco: Never Tobacco Cessation:Counseling Given: Not Answered Comments:yes Alcohol Use Standard Drinks/Week Comments No 0 (1 standard drink = 0.6 oz pur e alcohol) Social Connections Answer Date Recorded Connectedness 1 09/10/2023 Financial Resource Strain Answer Date R ecorded Financial Resource Strain 1 2023 Stress Answer Date Recorded Stress 1 09/10/2023 Physical Activity Answer Date Recorded Physical Activity 0 03/20/2019 Food Insecurity Answer Date Recorded Food 1 09/10/2023 Transportation Needs Answer Date Record ed Transportation 1 09/10/2023 Housing Stability Answer Date Recorded Housing 1 09/10/2023 Safety and Environment Answer Date Cristiano rded Safety 1 09/10/2023 Utilities Answer Date Recorded Utilities 1 09/10/2023 Employment Answer Date Recorded Employment 0 03/20/2019 Comments No Sex and Gender Information Value Date Recorded Sex Assigned at Female 05/07/2017 12:31 PM PDT Legal Sex Female 11:36 AM PDT Gender Identity Female 05/07/2017 12:31 PM PDT Sexual Orientation Straight 05/07/2017 12 :31 PM PDT Last Filed Vital Signs Vital Sign Reading Time Taken Comments Blood Pressure 124/82 07/29/2024 1:42 PM EST Pulse 80 07/29/2024 1:42 PM EST Temperature 36.9 ??C (98.4 ??F) 07/29/2024 1:42 PM ES T Respiratory Rate 16 09/10/2023 8:50 AM EST Oxygen Saturation 96% 12/24/2023 9:17 AM EDT Inhaled Oxygen Concentration - - Weight 66.7 kg (147 lb) 07/29/2024 1:42 PM EST Height 172.7 cm (5' 8 ) 09/10/2023 8:50 AM EST Body Mass Index 22.35 09/10/2023 8:50 AM EST Plan of Treatment Upcoming Encounters Date Type Department Care Team (Late st Contact Info) Description 10/01/2024 8:40 AM EST Office Visit [address] [phone] Latanya Pulido PA-C [address] [place] [phone] Health Maintenance Due Date Last Done Comments HPV Screening 1980 Pap + HPV 1980 Cervical Cancer Screening 2001 Pap Smear 2001 Imm-Pneumococcal (2 of 2 - PCV) 01/20/2013 2 Annual Preventive Care Visit 03/19/2018 03/19/2017 Syphilis Screening 01/09/2024 01/08/2023, 05/10/2022 [id number] ( season) 2024 06/14/2021, 08/25/2020, 07/25/2020 Alcohol and Drug Screen 07/28/2024 09/10/19 24, 06/05/2023, 05/09/2022, Additional history exists Depression Annual Screen 07/28/2024 09/10/2023 Tobacco Cessation Counseling (#1) 09/09/2024 Relationship Safety Screening/Counseling 09/10/2024 09/10/2023, 05/09/2022, 01/08/2021 Tobacco Screening 09/10/2024 09/10/2023 Diabetes Screening 02/23/2025 02/24/2024, 0 02/24/2024, 10/23/2022, Additional history exists Hypertension Screening (#1) 07/29/2025 Breast Cancer Screening (Mammogram) 03/01/2026 03/01/2024 Imm-DTaP/Tdap/Td (2 - Td or Tdap) 03/19/2027 017 Lipid Screening 02/23/2029 02/24/2024, 04/27, 03/20/2017 HIV Screening Completed 01/08/2023, 03/20/2017 Hepatitis C Screening Completed 01/08/2023 , 05/10/2022, 03/20/2017 Imm-Influenza Completed 03/31/2024, 03/29, 04/02/2022, Additional history exists Cervical Ablation/Cold-Knife Conization Discontinued Cervical Cryotherapy Discontinued Colposcopy Discontinued Endometrial Biopsy Discontinued Excision/Leep Discontinued HPV Genotyping Discontinued Imm-Hepatitis B Discontinued Vaginal Pap Discontinued Vulvoscopy Discontinued Procedures Procedure Name Priority Date/Time Associated Diagnosis Comments SURESWAB ADVANCED VAGINITIS PLUS, TMA Routine 07/29/2024 2:28 PM EST Vaginal irritation REFERRAL SCANNED DOCUMENT 06/14/2024 3:00 AM EST HISTORIC MAMMOGRAM 03/01/2024 3: 00 AM EDT HGA1C W/EAG Routine 02/24/2024 8:50 AM EDT Annual physical exam LIPIDS W RFLX TO DIRECT LDL Routine 02/24/2024 8:50 AM EDT Annual physical exam HIV 1/2 AG & AB W/RFLX (4TH GEN) Routine 01/08/2023 10:13 AM EDT Screen for STD (sexually transmitted disease) RPR W/RFLX TITER+FTA+CONF Routine 01/08/2023 10:13 AM EDT Screen for STD (sexually transmitted disease) ACUTE HEPATITIS PANEL W/RFLX Routine 01/08/2023 10:13 AM EDT Screen for STD (sexually transmitted disease) from Last 3 Months or Most Recently Relevant to Health Maintenance Results * (ABNORMAL) SUREAB ADVANCED VAGINITIS PLUS, TMA (07/29/2024 2:28 PM EST) SUREAB(R) ADV BACTERIAL VAGINOSIS (BV), TMA POSITIVE(A) NEGATIVE [facility] RAYA SPECIES DETECTED(A) NOT DETECTED [facility] RAYA GLABRATA NOT DETECTED NOT DETECTED [facility] COMMENT [employer] [facility] TRICHOMONAS VAGINALIS (TV), TMA NOT DETECTED NOT DETECTED [employer] [facility] CHLAMYDIA TRACHOMATIS RNA, TMA NOT DETECTED NOT DETECTED [employer] [facility] NEISSERIA GONORRHOEAE RNA, TMA NOT DETECTED NOT DETECTED [employer] [facility] COMMENT [employer] [facility] VAGINA Vaginal structure / Unknown 07/29/2024 2:28 PM EST 07/30/2024 4:18 AM EST Narrative [facility] - 07/30/2024 3:05 PM EST Raya species C. albicans, C. tropicalis, C. parapsilosis, and/or C. dubliniensis can be detected, but not differentiated, in the Raya spp. result. For additional information, please refer to https://education.Ini[employer]/faq/LDA438 (This link is being provided for information/ educational purposes only.) us Bart Noble PA-C LAB - NO BLOOD DRAW Final Res ult [facility] [address] [address], [employer] [address] [address] * REFERRAL SCANNED DOCUMENT (06/14/2024 3:00 AM EST) 06/14/2024 3:00 AM EST us Latanya Pulido PA-C SCAN REFERRAL Final Result * HISTORIC MAMMOGRAM (03/01/2024 3:00 AM EDT) 03/01/2024 3:00 AM EDT Latanya Pulido PA-C IMG MAMMO Edited Resul t - Final * (ABNORMAL) HGA1C W/EAG (02/24/2024 8:50 AM EDT) HEMOGLOBIN A1C 5.8(H) <5.7 % of total Hgb [facility] Comment: For someone without known diabetes, a hemoglobin A1c value between 5.7% and 6.4% is consistent with prediabetes and should be confirmed with a follow-up test. For someone with known diabetes, a value <7% indicates that their diabetes is well controlled. A1c targets should be individualized based on duration of diabetes, age, comorbid conditions, and other considerations. This assay result is consistent with an increased risk of diabetes. Currently, no consensus exists regarding use of hemoglobin A1c for diagnosis of diabetes for children. EAG (MG/DL) 120 mg/dL [facility] EAG (MMOL/L) 6.6 mmol/L [facility] Blood Blood / Unknown 02/24/2024 8 :50 AM EDT 02/24/2024 8:51 AM EDT Narrative AfterYes - 02/28/2024 1:57 PM EDT FASTING:NO Latanya Pulido PA-C LAB - BLOOD DRAW Edited Resu lt - Final AfterYes [address] [place] [id number], [facility] [address] [place] [phone] * (ABNORMAL) LIPIDS W RFLX TO DIRECT LDL (02/24/2024 8:50 AM EDT) CHOLESTEROL, TOTAL 204(H) <200 mg/dL [facility] HDL CHOLESTEROL 63 > OR = 50 mg/dL [facility] TRIGLYCERIDES 101 <150 mg/dL [facility] LDL-CHOLESTEROL 121(H) 99 mg/dL (calc) [facility] Comment: Reference range: <100 Desirable range <100 mg/dL for primary prevention; ?? <70 mg/dL for patients with CHD or diabetic patients with > or = 2 CHD risk factors. LDL-C is now calculated using the Miky calculation, which is a validated novel method providing better accuracy than the Friedewald equation in the estimation of LDL-C. Samson SS et al. EVERARDO. 2013;310(42): 2275-1493 (http://education.[employer]ico.[employer]/faq/VXU445) CHOL/HDLC RATIO 3.2 <5.0 (calc) [facility] NON-HDL CHOLESTEROL 141(H) <130 mg/dL (calc) [facility] Comment: For patients with diabetes plus 1 major ASCVD risk factor, treating to a non-HDL-C goal of <100 mg/dL (LDL-C of <70 mg/dL) is considered a therapeutic option. Blood Blood / Unknown 02/24/2024 8 :50 AM EDT 02/24/2024 8:51 AM EDT Narrative AfterYes - 02/28/2024 1:57 PM EDT FASTING:NO us Latanya Pulido PA-C LAB - BLOOD DRAW Final Resul t AfterYes [address] [place] [address], [facility] [address] [place] [phone] * HIV 1/2 AG & AB W/RFLX (4TH GEN) (01/08/2023 10:13 AM EDT) HIV AG/AB, 4TH GEN NON-REAC TIVE NON-REAC TIVE [facility] Comment: HIV-1 antigen and HIV-1/HIV-2 antibodies were not detected. There is no laboratory evidence of HIV infection. PLEASE NOTE: This information has been disclosed to you from records whose confidentiality may be protected by state law. ??If your state requires such protection, then the state law prohibits you from making any further disclosure of the information without the specific written consent of the person to whom it pertains, or as otherwise permitted by law. A general authorization for the release of medical or other information is NOT sufficient for this purpose. ?? For additional information please refer to http://AstroloMe.Ini3 Digital/faq/GXJ227 (This link is being provided for informational/ educational purposes only.) The performance of this assay has not been clinically validated in patients less than 2 years old. Blood Blood / Unknown 01/08/2023 1 0:13 AM EDT 01/08/2023 10:14 AM EDT Narrative AfterYes - 01/10/2023 3:47 PM EDT FASTING:NO Kavita Kessler NP LAB - BLOOD DRAW Final Result AfterYes [address] [place] [id number], [employer] [address] [address] * ACUTE HEPATITIS PANEL W/RFLX (01/08/2023 10:13 AM EDT) HEPATITIS A IGM ANTIBODY NON-REACT DEJA NON-REACT DEJA [facility] COMMENT [facility] HEPATITIS B SURFACE ANTIGEN NON-REACT DEJA NON-REACT DEJA [employer] [facility] HEPATITIS B CORE IGM ANTIBODY NON-REACT DEJA NON-REACT DEJA [employer] [facility] HEPATITIS C ANTIBODY NON-REACT DEJA NON-REACT DEJA [employer] [facility] SIGNAL TO CUT-OFF 0.14 <1.00 [facility] Comment: HCV antibody was non-reactive. There is no laboratory evidence of HCV infection. In most cases, no further action is required. However, if recent HCV exposure is suspected, a test for HCV RNA (test code 72313) is suggested. For additional information please refer to http://AstroloMe.Ini[employer] Digital/faq/QAN16b6 (This link is being provided for informational/ educational purposes only.) Blood Blood / Unknown 01/08/2023 1 0:13 AM EDT 01/08/2023 10:14 AM EDT Narrative [facility] - 01/10/2023 3:47 PM EDT FASTING:NO For additional information, please refer to http://education.Ini[employer]/faq/NEB036 (This link is being provided for informational/ educational purposes only.) us Kavita Kessler NP LAB - BLOOD DRAW Final Result Performing Organization Address City/[facility]/ZIP Co de Phone Number [employer] [address] [address], [employer] [address] [address] * RPR W/RFLX TITER+FTA+CONF (01/08/2023 10:13 AM EDT) RPR (DX) W/REFL TITER AND CONFIRMATORY TESTING NON-REACT DEJA NON-REACT DEJA [employer] [facility] Blood Blood / Unknown 01/08/2023 1 0:13 AM EDT 01/08/2023 10:14 AM EDT Narrative [facility] - 01/10/2023 3:47 PM EDT FASTING:NO us Kavita Kessler NP LAB - BLOOD DRAW Final Result Performing Organization Address [facility] Co de Phone Number [employer] [address] [address], [employer] [address] [phone] from Last 3 Months or Most Recently Relevant to Health Maintenance Insurance [employer] [facility] Member Subscriber Plan / Payer (Ef fective 2024-Present) Name:Luana Lagunas Relation to Subscriber:Self Name:Luana Lagunas Payer ID:[id number] Type:Indemnity Address: [address] [address] Care Teams Power Transformer Repair Supervisor Relationship Specialty Start Date End Date Latanya Pulido PA-C [address] [place] [address] PCP - General Internal Medicine 12/16/22
--- OUTSIDE RECORDS SUMMARY | 2024-09-01 15:01 | XMS_ITS | Encounter Summary ---
Author Organization [facility] Address [address] [place] [address] Care Team Providers Care Signal Tower Director Name Role Phone Latanya Pulido PA-C Primary Care Provider + [phone] Reason for Referral * Radiology Services (Routine) - Authorized Specialty Diagnoses / Procedures Referred By Echo burciaga Referred To Contact Diagnoses Breast pain, left Procedures REFERRAL FOR DIAGNOSTIC MAMMOGRAM Latanya Pulido PA-C [facility] [place] [address] Phone: tel: fax: [address] Phone: tel: fax: Referral ID Status Reason Start Date Expiration Date Visits Requested Visits Authorized [id number] Authorized Service Not Available at Clinic 08/03/2024 10/02/2024 1 1 Encounter Details Date Type Department Care Team (Late st Contact Info) Description 08/03/2024 Interim Notes [address] [phone] Latanya Pulido PA-C [address] [place] [id number] Breast pain, left (Primary Dx) Social History Tobacco Use Types Packs/Day Years Used Date Smoking Tobacco: Former Smokeless Tobacco: Never Comments:yes Alcohol Use Standard Drinks/Week Comments No [...] Orientation Straight 05/07/2017 12 :31 PM PDT COVID-19 Exposure Response Date Recorded In the last 10 days, have yo u been in contact with someone who was confirmed or suspected to have Coronavirus/COVID-19? No / Unsure 07/29/2024 1:22 PM EST documented as of this encounter Progress Notes * Latanya Pulido PA-C - 08/03/2024 10:59 PM EST N64.4 Breast pain, left (primary encounter diagnosis) Plan : REFERRAL FOR DIAGNOSTIC MAMMOGRAM documented in this encounter Plan of Treatment Upcoming Encounters Date Type Department Care Team (Late st Contact Info) Description 10/01/2024 8:40 AM EST Office Visit [address] [phone] Latanya Pulido PA-C [address] [place] [phone] Scheduled Orders Name Type Priority Associated Diagnoses Orde r Schedule REFERRAL FOR DIAGNOSTIC MAMMOGRAM Imaging Routine Breast pain, left Ordered: 08/03/2024 documented as of this encounter Visit Diagnoses Diagnosis Breast pain, left- Primary Mastodynia documented in this encounter Additional Health Concerns Assessment Noted Time PHQ-9 Depression Total Score: 0 09/10/19 8:53 AM PST documented as of this encounter Care Teams Signal Tower Director Relationship Specialty Start Date End Date Latanya Pulido PA-C [facility] [place] [address] PCP - General Internal Medicine 12/16/22 documented as of this encounter
== END 2024-09-01 13:38 | disposition home or self-care (01) ==
LOC: HO.MAMMO 13:37
PROVIDERS: PCP Physician Assistant; Visit Provider Physician Assistant
DX: N64.4 Mastodynia (principal)
CPT/HCPCS: 76642; 77061; 77065

== ENCOUNTER → 2024-09-01 14:30 | Outpatient (BNV) | payer OTHER, SELFPAY | PROVIDERS: PCP Physician Assistant; Visit Provider Internal Medicine | DX: N63.20 Unspecified lump in the left breast, unspecified quadrant (principal) | CPT/HCPCS: 76642; 77061; 77065 ==

== ENCOUNTER → 2025-07-08 09:15 | Outpatient (BNV) | payer OTHER, SELFPAY | PROVIDERS: PCP Physician Assistant; Visit Provider Internal Medicine | DX: Z12.31 Encounter for screening mammogram for malignant neoplasm of breast (principal) | CPT/HCPCS: 77063; 77067 ==

== ENCOUNTER 2025-07-08 09:18 | Outpatient (REF) | payer OTHER, SELFPAY ==
--- NOTE | ~2025-07-08 | MM_ITS ---
EXAMINATION: MM SCREENING DIGITAL BREAST TOMOSYNTHESIS, BILATERAL CLINICAL INFORMATION: Screening. Asymptomatic. COMPARISON: Mammography: Comparison is made with available priors TECHNIQUE: Digital breast mammography with tomosynthesis is performed in both the craniocaudal and mediolateral oblique views along with computer-aided detection (CAD). FINDINGS: The breasts are heterogeneously dense, which may obscure small masses. There are no significant masses, abnormal calcifications, or other abnormalities. MM/MM tomosynthesis screening BI IMPRESSION: No mammographic evidence of malignancy. ASSESSMENT: BI-RADS Category 1: Negative RECOMMENDATION: Routine annual mammography screening. 1 year F/U This examination should not preclude the clinical evaluation of a suspicious palpable abnormality. This patient's information was entered into a reminder system with a target due date for their next mammogram. Electronically signed by: Zuleyma Lora DO 07/12/2025 01:29 PM [facility]
== END 2025-07-08 09:19 | disposition home or self-care (01) ==
LOC: HO.MAMMO 09:18
PROVIDERS: PCP Physician Assistant; Visit Provider Physician Assistant
DX: Z12.31 Encounter for screening mammogram for malignant neoplasm of breast (principal)
CPT/HCPCS: 77063; 77067